=== PATIENT | female | born 1955 | race Caucasian/White ===

== ENCOUNTER → 2018-05-24 | Outpatient (CLI) | payer BC, OTHER ==
--- NOTE | 2018-06-03 08:41 | RAD ---
DATE: 05/24/2018 EXAM: MAMMO FLORESITA SCREENING BILATERAL HISTORY: Routine screening COMPARISON: None available This study was interpreted with the benefit of Computerized Aided Detection (CAD). Breast Density: HETERO The breast parenchyma is heterogenously dense, which could reduce sensitivity of mammography. Breast parenchyma level C. FINDINGS: 2-D and 3-D tomosynthesis imaging was performed in CC and MLO projections. There are several smooth nodules in the lateral aspects of both breasts. These have a benign appearance and are probably intramammary lymph nodes. No spiculated mass or architectural distortion is seen. Minimal benign type calcification is present. No suspicious microcalcifications are evident. IMPRESSION: Small smooth lateral breast nodules which are probably intramammary lymph nodes. Sonographic evaluation is suggested. BI-RADS CATEGORY: 0 INCOMPLETE: NEEDS ADDITIONAL IMAGING EVALUATION AND/OR PRIOR MAMMOGRAMS FOR COMPARISON. RECOMMENDED FOLLOW-UP: ADD ADDITIONAL IMAGING PQRS compliance statement: Patient information was entered into a reminder system with a target due date for the next mammogram. Mammography is a sensitive method for finding small breast cancers, but it does not detect them all and is not a substitute for careful clinical examination. A negative mammogram does not negate a clinically suspicious finding and should not result in delay in biopsying a clinically suspicious abnormality. "Our facility is accredited by the [employer] Mammography [employer]."
== END | disposition home or self-care (01) ==
LOC: MAMMO 08:20
PROVIDERS: ATTEND Physician Assistant
DX: Z12.31 Encounter for screening mammogram for malignant neoplasm of breast (principal)
CPT/HCPCS: 77063; 77067

== ENCOUNTER → 2018-06-16 | Outpatient (CLI) | payer BC, OTHER ==
--- NOTE | 2018-06-16 14:37 | RAD ---
Bilateral breast ultrasound, 06/16/2018: History: Abnormal mammograms A targeted ultrasound exam of the lateral aspects of both breasts was performed. On the right at the 10:00 location approximately 7 cm from the nipple there is a 5 mm hypoechoic nodule with an echogenic hilum. Its margins are smooth. The appearance is compatible with an intramammary lymph node. Also on the right at the 9:00 location approximately 4 cm from the nipple there is a similar small 6 mm nodule compatible with a intramammary lymph node. On the left at the 3:00 location approximately 4 cm from the nipple there is a cluster of 2 small hypoechoic nodules each measuring approximately 3 mm. These also probably represent lymph nodes. No suspicious mass or unusual fluid collection is identified. IMPRESSION: Probably benign small bilateral intramammary lymph nodes. Follow-up bilateral mammography in 6 months and then at yearly intervals is suggested to confirm stability. BI-RADS 3-probably benign findings
== END | disposition home or self-care (01) ==
LOC: US 12:42
PROVIDERS: ATTEND Physician Assistant
DX: N63.11 Unspecified lump in the right breast, upper outer quadrant (principal); N63.21 Unspecified lump in the left breast, upper outer quadrant
CPT/HCPCS: 76641

== ENCOUNTER → 2019-01-04 | Outpatient (CLI) | payer BC, OTHER ==
--- NOTE | 2019-01-04 14:55 | RAD ---
DATE: 01/04/2019. EXAM: DIGITAL DIAGNOSTIC BILATERAL. HISTORY: 6 month follow-up mammographic nodules. COMPARISON: 05/24/2018. This study was interpreted with the benefit of Computerized Aided Detection (CAD). FINDINGS: Breast Density: SCATTERED The breast parenchyma shows scattered fibroglandular densities. Breast parenchyma level B.. The nodules of prior concern bilaterally are reniform and consistent with benign intramammary lymph nodes. There are no suspicious masses, calcifications or architectural distortion. BI-RADS CATEGORY: 2 BENIGN FINDING(S). RECOMMENDED FOLLOW-UP: 12M 12 MONTH FOLLOW-UP. PQRS compliance statement: Patient information was entered into a reminder system with a target due date 01/05/2020 for the next mammogram. Mammography is a sensitive method for finding small breast cancers, but it does not detect them all and is not a substitute for careful clinical examination. A negative mammogram does not negate a clinically suspicious finding and should not result in delay in biopsying a clinically suspicious abnormality. "Our facility is accredited by the [employer] Mammography Program."
== END | disposition home or self-care (01) ==
LOC: MAMMO 13:15
PROVIDERS: ATTEND Physician Assistant
DX: R92.8 Other abnormal and inconclusive findings on diagnostic imaging of breast (principal)
CPT/HCPCS: 77066

== ENCOUNTER → 2020-02-28 | Outpatient (CLI) | payer BC, OTHER ==
--- NOTE | 2020-02-29 09:37 | RAD ---
DATE: 02/28/2020 9:46 AM EXAM: MAMMO FLORESITA SCREENING BILATERAL HISTORY: Screening COMPARISON: 01/04/2019 Bilateral CC and MLO views of the breasts were performed. Bilateral breast tomosynthesis was performed in CC and MLO projections. This study was interpreted with the benefit of Computerized Aided Detection (CAD). FINDINGS: Breast Density: SCATTERED The breast parenchyma shows scattered fibroglandular densities. Breast parenchyma level B No suspicious masses, microcalcifications or architectural distortion is present to suggest malignancy in either breast. The visualized axillae are unremarkable. IMPRESSION: No mammographic evidence of malignancy. BI-RADS CATEGORY: 1 NEGATIVE RECOMMENDED FOLLOW-UP: 12M 12 MONTH FOLLOW-UP Annual screening mammography is recommended, unless clinically indicated sooner based on symptoms or change in physical exam. PQRS compliance statement: Patient information was entered into a reminder system with a target due date for the next mammogram. Mammography is a sensitive method for finding small breast cancers, but it does not detect them all and is not a substitute for careful clinical examination. A negative mammogram does not negate a clinically suspicious finding and should not result in delay in biopsying a clinically suspicious abnormality. "Our facility is accredited by the [employer] Mammography [employer]."
== END ==
LOC: MAMMO 08:57
PROVIDERS: ATTEND Physician Assistant
DX: Z12.31 Encounter for screening mammogram for malignant neoplasm of breast (principal)
CPT/HCPCS: 77063; 77067